=== PATIENT | female | born 1970 | race Caucasian/White ===

== ENCOUNTER 2016-07-02 17:52 | Emergency (ER) | payer SELFPAY ==
[2016-07-02] MEDS ORDERED: TORADOL 30 MG VIAL IVP ONE (18:05)
[2016-07-02] MEDS ORDERED: NS 1000 ML 1,000 ML IV ONE (18:05)
[2016-07-02] MEDS ORDERED: TORADOL 30 MG VIAL ONE (18:06)
[2016-07-02] MEDS ORDERED: NS 1000 ML 1,000 ML ONE (18:06)
[2016-07-02 18:07] VITALS: BMI 26.6
--- NOTE | 2016-07-02 19:05 | DR.GENAD ---
HPI - PCP Primary Care Physician: nfd - Complaint/Symptoms Chief Complaint Doctors Comments: Patient reports that her symptoms started today Chief Complaint:: pt is c/o vomiting, body aches, headache, stomach pain, back pain - Source History Provided: Patient - Mode of Arrival Mode of Arrival: Ambulatory - Timing Onset of Chief Complaint: 06/30/16 PMH - PMH Past Medical History: Yes Past Medical History: Anxiety, Depression Past Surgical History: Yes Surgical History: Cholecystectomy Past Surgical History Comment: Tubiligation - Family History History of Family Medical Conditions: Yes Family Medical History: Cancer, [place], Hypertension - Social History Does patient currently use any type of tobacco product: Yes Have you used tobacco products in the last 12 months: Yes Type of Tobacco Use: Cigarettes Does any household member use tobacco: No Alcohol Use: None Do you use any recreational Drugs:: No Lives With: Spouse Lives Where: Home - infectious screening In the last 2 months have you had wt loss of >10#?: NO Have you had fever, night sweats or hemotysis?: No Have you traveled outside the country in the last 6 months?: No Isolation: Standard ROS - Review of Systems Eyes: No Symptoms Reported ENTM: No Symptoms Reported Respiratoy: No Symptoms Reported Cardiovascular: No Symptoms Reported Gastrointestinal/Abdominal: Abdominal Pain (generalized) Genitourinary: No Symptoms Reported Neurological: No Symptoms Reported Musculoskeletal: No Symptoms Reported Integumentary: No Symptoms Reported Hematologic/Lymphatic: No Symptoms Reported Endocrine: No Symptoms Reported Psychiatric: No Symptoms Reported All Other Systems: Reviewed and Negative PE - Vital Signs Vitals: Temperature 99.6 F Pulse Rate [Left Brachial] 102 Pulse Rate 137 Respiratory Rate 18 Blood Pressure [Left Arm] 126/72 Blood Pressure 119/61 O2 Sat by Pulse Oximetry 99 - General General Appearance: Alert, In No Apparent Distress - Head Head Exam: Normal Inspection, Atraumatic - Eyes Eye exam: Normal Appearance, PERRL, EOMI - ENT ENT Exam: Normal Exam External Ear Exam: Normal External Inspection TM/Canal Exam: Bilateral Normal Nose Exam: Normal Nose Exam, Sinus Tenderness Mouth Exam: Normal Inspection Throat Exam: Normal Inspection - Neck Neck Exam: Normal Inspection - Chest Chest Inspection: Normal Inspection - Respiratory Respiratory Exam: Normal Lung Sounds Bilat Respiratory Exam: Bilateral Clear to Auscultation - Cardiovascular Cardiovascular Exam: Regular Rate, Normal Rhythm - Abdominal Exam Abdominal Exam: Tenderness. negative: Normal Bowel Sounds, Rebound, Rigidity Abdominal Tenderness: Epigastrium, Suprapubic - Extremities Extremities Exam: Normal Inspection, Full ROM - Back Back Exam: Normal Inspection, Full ROM - Neurologic Neurological Exam: Alert, Oriented X3, CN II-XII Intact - Psychiatric Psychiatric Exam: Normal Affect, Normal Mood - Skin Skin Exam: Warm, Dry, Intact Course - Reevaluation 1st: Improved ROR - Labs Reviewed Laboratory Results Reviewed?: Yes (Influenza negative) Result Diagrams: 07/02/16 19:30 07/02/16 19:30 Laboratory: WBC 15.8 X10^3/uL (3.6-10.0) H 07/02/16 19:30 RBC 3.85 X10^6/uL (3.5-5.4) 07/02/16 19:30 Hgb 11.6 g/dL (12.0-16.0) L 07/02/16 19:30 Hct 34.4 % (36.0-47.0) L 07/02/16 19:30 MCV 89.3 fL (80.0-100.0) 07/02/16 19:30 MCH 30.2 pg (27.0-34.0) 07/02/16 19:30 MCHC 33.8 g/dL (33.0-35.0) 07/02/16 19:30 RDW 13.0 % (11.6-16.5) 07/02/16 19:30 Plt Count 175 X10^3/uL (150.0-450.0) 07/02/16 19:30 MPV 9.3 fL (7.4-11.0) 07/02/16 19:30 Neut % 87.4 % (42.0-75.0) H 07/02/16 19:30 Lymph % 5.0 % (21.0-51.0) L 07/02/16 19:30 Falls % 7.3 % (0.0-13.0) 07/02/16 19:30 Eos % 0.1 % (0.9-2.9) L 07/02/16 19:30 Baso % 0.2 % (0.2-1.0) 07/02/16 19:30 Neut # 13.8 x10^3/uL (2.2-4.8) H 07/02/16 19:30 Lymph # 0.8 X10^3/uL (1.3-2.9) L 07/02/16 19:30 Falls # 1.2 x10^3/uL (0.3-0.8) H 07/02/16 19:30 Eos # 0.0 x10^3/uL (0.0-0.2) 07/02/16 19:30 Baso # 0.0 X10^3/uL (0.0-0.1) 07/02/16 19:30 Absolute Nucleated RBC 0.0 /100WBC 07/02/16 19:30 Sodium 139 mmol/L (136-145) 07/02/16 19:30 Corrected Sodium 139 mmol/L (136-145) 07/02/16 19:30 Potassium 3.6 mmol/L (3.5-5.1) 07/02/16 19:30 Chloride 106 mmol/L (98-107) 07/02/16 19:30 Carbon Dioxide 23.5 mmol/L (21-32) 07/02/16 19:30 BUN 16 mg/dL (7-18) 07/02/16 19:30 Creatinine 1.33 mg/dL (0.55-1.02) H 07/02/16 19:30 Est GFR (MDRD) Af Amer 56 (>60) L 07/02/16 19:30 Est GFR (MDRD) Non-Af 46 (>60) L 07/02/16 19:30 Glucose 113 mg/dL (65-99) H 07/02/16 19:30 Calcium 8.1 mg/dL (8.5-10.1) L 07/02/16 19:30 H. pylori IgG Antibody Negative (NEGATIVE) 07/02/16 19:30 Influenza A (H1N1) PCR Not detected (NOT DETECT) 07/02/16 18:10 Influenza Type A (PCR) Negative (NEGATIVE) 07/02/16 18:10 Influenza Type B (PCR) Negative (NEGATIVE) 07/02/16 18:10 Streptococcus Screen Negative (NEGATIVE) 07/02/16 18:10 - XRAY XRAY Interpreted by: Radiologist (Brain: No acute abnormality) - Diagnosis Discharge Problem: Influenza-like symptoms - Discharge Plan Condition: Stable - Follow ups/Referrals Follow ups/Referrals: NFD,None [Primary Care Provider] - 3 days - Instructions
[2016-07-02 19:23] VITALS: BP 126/72
[2016-07-02] MEDS ORDERED: MORPHINE SULFATE INJ 4 MG IVP ONE (20:21)
[2016-07-02 20:27] LABS: BASOPHILS % (AUTO) 0.2 % (0.2-1.0); EOSINOPHILS % (AUTO) 0.1 % (0.9-2.9); HEMATOCRIT 34.4 % (36.0-47.0); HEMOGLOBIN 11.6 g/dL (12.0-16.0); LYMPHOCYTES # (AUTO) 0.8 X10^3/uL (1.3-2.9); MEAN CORPUSCULAR HEMOGLOBIN 30.2 pg (27.0-34.0); MEAN CORPUSCULAR HGB CONC 33.8 g/dL (33.0-35.0); MEAN CORPUSCULAR VOLUME 89.3 fL (80.0-100.0); MEAN PLATELET VOLUME 9.3 fL (7.4-11.0); MONOCYTES # (AUTO) 1.2 x10^3/uL (0.3-0.8); MONOCYTES % (AUTO) 7.3 % (0.0-13.0); NEUTROPHILS # (AUTO) 13.8 x10^3/uL (2.2-4.8); NEUTROPHILS % (AUTO) 87.4 % (42.0-75.0); PLATELET COUNT 175 X10^3/uL (150.0-450.0); RED BLOOD COUNT 3.85 X10^6/uL (3.5-5.4); WHITE BLOOD COUNT 15.8 X10^3/uL (3.6-10.0)
[2016-07-02] MEDS ORDERED: MORPHINE SULFATE INJ 4 MG ONE (20:29)
[2016-07-02 20:30] LABS: CALCIUM 8.1 mg/dL (8.5-10.1); CARBON DIOXIDE 23.5 mmol/L (21-32); CREATININE 1.33 mg/dL (0.55-1.02)
--- NOTE | 2016-07-02 20:48 | CT ---
EXAM: CT BRAIN WITHOUT CONTRAST INDICATION: Headache COMPARISION: No Priors TECHNIQUE: Routine axial CT of the brain was performed without intravenous contrast. FINDINGS: The cerebral and cerebellar cortex are normal. The ventricular system is nondilated. No intra or ext ra-axial mass or hemorrhage. The marina-white junction is preserved. There is no evidence of subacute ischemic change. The basilar cisterns are clear. The skull is intact. The mastoid air cells are clear. IMPRESSION: Normal brain CT examination Reported By:
[2016-07-02] MEDS ORDERED: TYLENOL #3 TAB (W/CODEINE) PO ONE ×2 (21:13→21:27)
[2016-07-02 21:46] LABS: BILIRUBIN,URINE 1+ (NEGATIVE); BLOOD/HEMOGLOBIN,URINE NEGATIVE (NEGATIVE); GLUCOSE, URINE NEGATIVE (NEGATIVE); KETONES,URINE 1+ (NEGATIVE); LEUKOCYTE ESTERASE ,URINE 1+ (NEGATIVE); NITRITES,URINE NEGATIVE (NEGATIVE); PROTEIN,URINE 3+ (NEGATIVE); UROBILINOGEN,URINE 1+ (NORMAL)
[2016-07-02 21:53] LABS: APPEARANCE,URINE HAZY (CLEAR); BACTERIA,URINE TRACE /HPF (NEGATIVE); COLOR,URINE YELLOW (YELLOW); RBC,URINE 0-3 /HPF (NEGATIVE); SQUAMOUS EPITHELIAL CELL,UR FEW /HPF (NEGATIVE)
== END 2016-07-02 21:35 | disposition home or self-care (01) ==
LOC: ER 18:00
DX: J11.1 Influenza due to unidentified influenza virus with other respiratory manifestations (principal)
CPT/HCPCS: 36415; 70450; 80048; 81001; 85025; 86677; 87070; 87502; 87503; 87880; 96365; 96374; 96375; 99283; A4222; J1885; J2270

== ENCOUNTER 2024-03-28 07:30 | Observation (INO) ==
[2024-03-28] MEDS: LR 1,000 ML IV 1,000 ML IV ONE ×2 (09:45→11:46)
[2024-03-28] MEDS: BYFAVO INJ IVP ONE (09:52)
[2024-03-28] MEDS: TRANSDERM-SCOP TD ONE (09:59)
[2024-03-28] MEDS ORDERED: BYFAVO INJ PRN (10:05)
[2024-03-28 10:11] VITALS: BMI 31.4
[2024-03-28] MEDS: VERSED ONE ×2 (10:45→13:56)
[2024-03-28] MEDS: FENTANYL VIAL INJ 100 mcg ONE (10:45)
[2024-03-28] MEDS: DIPRIVAN VIAL 20 ML ONE (10:46)
[2024-03-28] MEDS: BRIDION ONE (10:47)
[2024-03-28] MEDS: NAROPIN 0.75% EPI ONE (10:47)
[2024-03-28] MEDS: ZEMURON 100 MG VIAL ONE (10:47)
[2024-03-28] MEDS: PEPCID 20 MG VIAL ONE (10:47)
[2024-03-28] MEDS: ZOFRAN INJ 4 MG VIAL ONE (10:47)
[2024-03-28] MEDS: REGLAN INJ 10 MG VIAL ONE (10:47)
[2024-03-28] MEDS: PEPCID 20 MG VIAL IVP PRN (11:15)
[2024-03-28] MEDS: REGLAN INJ 10 MG VIAL IVP PRN (11:15)
[2024-03-28] MEDS: ANCEF VIAL 1 GRAM IV PRN (11:15)
[2024-03-28] MEDS: ZOFRAN INJ 4 MG VIAL IVP PRN ×2 (11:15→17:07)
[2024-03-28] MEDS: NS 100 ML IV 100 ML ONE (11:19)
[2024-03-28] MEDS: ANCEF VIAL 1 GRAM ONE (11:19)
[2024-03-28] MEDS: LR 1,000 ML IV 1,000 ML IV PRN (11:20)
[2024-03-28] MEDS ORDERED: BENADRYL INJ 50 MG VIAL IVP PRN (11:22)
[2024-03-28] MEDS ORDERED: REGLAN INJ 10 MG VIAL IVP PRN (11:22)
[2024-03-28] MEDS ORDERED: BARHEMSYS INJ IVP PRN (11:22)
[2024-03-28] MEDS ORDERED: ZOFRAN INJ 4 MG VIAL IVP PRN (11:22)
[2024-03-28] MEDS ORDERED: DILAUDID INJ IVP PRN (11:22)
[2024-03-28] MEDS ORDERED: PRECEDEX INJ VIAL ONE (11:32)
[2024-03-28] MEDS ORDERED: KETAMINE HCL ONE (11:32)
[2024-03-28] MEDS: FENTANYL VIAL INJ 100 mcg IVP PRN (11:37)
[2024-03-28] MEDS ORDERED: XYLOCAINE 2 % (PLAIN) PRN (11:37)
[2024-03-28] MEDS: MARCAINE 0.25% INJ ONE (11:49)
[2024-03-28] MEDS: TORADOL 30 MG VIAL ONE (12:02)
[2024-03-28] MEDS: OFIRMEV IV 1000 MG VIAL 1,000 MG/100 ML VIAL IV ONE (12:02)
[2024-03-28] MEDS: PRECEDEX INJ VIAL IVP PRN (12:04)
[2024-03-28] MEDS: OFIRMEV IV 1000 MG VIAL 1,000 MG/100 ML VIAL IV PRN (12:27)
[2024-03-28] MEDS: ZEMURON 100 MG VIAL IVP PRN (12:51)
[2024-03-28] MEDS: DIPRIVAN VIAL 160 ML IVP PRN (12:51)
[2024-03-28] MEDS: DILAUDID INJ ONE (13:05)
[2024-03-28] MEDS: DILAUDID INJ IVP PRN ×2 (13:06→20:49)
[2024-03-28] MEDS: KETAMINE HCL IV PRN (13:13)
[2024-03-28] MEDS: TORADOL 30 MG VIAL IVP PRN (13:26)
[2024-03-28] MEDS: EPHEDRINE SULFATE INJ ONE (13:32)
[2024-03-28] MEDS: EPHEDRINE SULFATE INJ IVP PRN (13:34)
[2024-03-28] MEDS: BRIDION IVP PRN (13:48)
[2024-03-28] MEDS ORDERED: TYLENOL 325 MG TAB PO PRN (13:48)
[2024-03-28] MEDS ORDERED: BENADRYL CAP/TAB 25 MG PO PRN (13:48)
[2024-03-28] MEDS: VERSED IVP PRN (13:56)
[2024-03-28] MEDS: DUONEB 0.5 MG/3 MG (3 mL) NEB ONE (13:58)
[2024-03-28] MEDS: NS 1,000 ML IV 1,000 ML IV SCH (15:07)
[2024-03-28] MEDS: PERCOCET TAB 5/325 MG PO PRN (17:07)
[2024-03-28] MEDS: COLACE CAP 100 MG PO SCH (20:43)
[2024-03-29 05:22] LABS: BLOOD UREA NITROGEN 14 mg/dL (7-18); CALCIUM 8.4 mg/dL (8.5-10.1); CARBON DIOXIDE 28.3 mmol/L (21-32); CHLORIDE 103 mmol/L (98-107); COR NA(FOR HYPERGLY) 137 mmol/L (136-145); CREATININE 0.74 mg/dL (0.55-1.02); GLUCOSE 116 mg/dL (65-99); POTASSIUM 4.1 mmol/L (3.5-5.1); SODIUM 137 mmol/L (136-145); eGFR NON BLACK RACES > 60 (>60)
[2024-03-29] MEDS: LOVENOX INJ 40 MG SYR SC SCH (08:10)
--- NOTE | 2024-03-29 08:16 | NOTE.SOAP ---
Soap Note Note for Day of Date of Exam: 03/29/24 Subjective Data Subjective Data: Patient had some nausea and vomiting over the night but she states that is nothing out of the ordinary as she had this after she had her ankle fixed the first time. She denies and chest pain or shortness of breathe. Denies any diaphoresis. Her major complaint this morning is she is experiencing some medial ankle pain and tingling. Objective Data Objective Data: Left Lower Extremity Exam: Sensation is intact to light touch at the toes and plantar aspect of the foot. Dressing was taken down. No hematoma noted at incision. Tender along dorsal medial ankle. Surgical incision is healing well. Denies calf pain. No signs or symptoms concerning for DVT or PE. Assessment Assessment: 53 year old Female POD#1 TAA, Left Plan Plan: - NWB to LLE - Dressing change performed, instructed to leave intact. - Pain medication Rx in chart. - Zofran Rx in chart. - Lovenox Rx in chart, she should have 1 dose today and then start the Rx I gave her tomorrow. - Follow-up is in chart as well. - Okay for discharge once evaluated by Dr. Manzo or source water protection specialist provider.
[2024-03-29 08:30] VITALS: BP 120/56; PULSE 81; TEMP 98.8; O2SAT 98
[2024-03-29 08:57] VITALS: RESP 20
== END 2024-03-29 10:10 | disposition home or self-care (01) ==
LOC: MED/SURG
PROVIDERS: ADMIT Obstetrics & Gynecology Obstetrics; ATTEND Obstetrics & Gynecology Obstetrics
DX: M12.572 Traumatic arthropathy, left ankle and foot; T84.84XA Pain due to internal orthopedic prosthetic devices, implants and grafts, initial encounter; G89.18 Other acute postprocedural pain; I10 Essential (primary) hypertension